=== PATIENT | male | born 1970 | race Two or more races ===

== ENCOUNTER 2017-08-16 19:18 | Emergency (ER) | payer SELFPAY ==
[~2017-08-16] VITALS: Ht 180.3 cm; Wt 103.6 kg
[2017-08-16] MEDS ORDERED: CHLORDIAZEPOXIDE 25 MG CAPSULE PO ONE (20:00)
[2017-08-16] MEDS ORDERED: ONDANSETRON ODT 4 MG PO ONE (20:00)
[2017-08-16] MEDS ORDERED: THIAMINE 100MG TABLET PO ONE (20:00)
[2017-08-16] MEDS ORDERED: PANT20TA3 PO (20:01)
[2017-08-16] MEDS ORDERED: THIAMINE 100MG TABLET ONE (20:04)
[2017-08-16] MEDS ORDERED: ONDANSETRON ODT 4 MG ONE (20:04)
[2017-08-16] MEDS ORDERED: CHLORDIAZEPOXIDE 25 MG CAPSULE ONE ×2 (20:05→20:07)
[2017-08-16 20:10] LABS: BASOPHILS # (AUTO) 0.03 x10^3/uL (0-0.1); BASOPHILS % (AUTO) 1 % (0-1); EOSINOPHILS # (AUTO) 0.09 x10^3/uL (0-0.4); EOSINOPHILS % (AUTO) 2 % (1-7); LYMPHOCYTES # (AUTO) 1.27 x10^3/uL (1-3.4); LYMPHOCYTES % (AUTO) 32 % (22-44); MD NO; MEAN CORPUSCULAR HGB CONC 33.8 g/dL (33.2-36.2); MEAN CORPUSCULAR VOLUME 94.7 fL (81-97); MEAN PLATELET VOLUME 9.7 fL (7.4-10.4); MONOCYTES # (AUTO) 0.42 x10^3/uL (0.2-0.8); MONOCYTES % (AUTO) 11 % (2-9); NEUTROPHILS # (AUTO) 2.17 x10^3/uL (1.8-6.8); NEUTROPHILS % (AUTO) 55 % (42-75); PLATELET COUNT 188 x10^3/uL (130-400); RED BLOOD COUNT 4.97 x10^6/uL (4.38-5.82); RED CELL DISTRIBUTION WIDTH 16.8 % (9.4-14.8)
[2017-08-16 20:18] LABS: ALANINE AMINOTRANSFERASE 180 U/L (12-78); ALBUMIN 3.9 g/dL (3.4-5.0); ANION GAP 10 mmol/L (5-15); CALCIUM 8.9 mg/dL (8.5-10.1); CHLORIDE 101 mmol/L (98-107)
[2017-08-16 20:20] LABS: ALKALINE PHOSPHATASE 110 U/L (45-117); BILIRUBIN,TOTAL 1.5 mg/dL (0.2-1.0); TOTAL PROTEIN 8.2 g/dL (6.4-8.2)
[2017-08-16 20:52] VITALS: BP 129/61
== END 2017-08-16 21:23 | disposition home or self-care (01) ==
LOC: ED 20:10
DX: F10.239 Alcohol dependence with withdrawal, unspecified (principal); K70.10 Alcoholic hepatitis without ascites
CPT/HCPCS: 36415; 80053; 83690; 85025; 99284; Q0162